=== PATIENT | female | born 1935 | race Caucasian/White ===

== ENCOUNTER 2016-08-19 05:24 | Emergency (ER) | payer OTHER ==
[~2016-08-19] VITALS: Ht 167.6 cm; Wt 85.3 kg
[~2016-08-19 05:24] MED LIST: ADVIL,NUPRIN,M200 MG PO; ATORVASTATIN CA10 MG PO; CALCIUM 500 +1 EAC4 PO; CIPRO500 MG PO; EYE DROP TEARS15 ML BOTH EYES; FISH OIL 1,0001 EAC7 PO; FLAGYL500 MG PO; MAGNESIUM100 MG PO; OMEGA 3-6-9 11200 MG PO; PRILOSEC10 MG PO; PROTONIX40 MG PO; RANITIDINE HCL300 MG PO; TYLENOL EXTRA500 MG PO; VITAMIN D1000 INTUN PO; ZANTAC300 MG PO; ZOFRAN4 MG PO
[2016-08-19 06:45] LABS: EOSINOPHIL (%) 0.2 % (0-5); HEMATOCRIT 38.2 % (36.0-46.0); IMMATURE GRANULOCYTE COUNT 0.1 K/uL; LYMPHOCYTE COUNT 0.8 K/uL (1.0-2.8); MCH 33.9 PG (29.0-34.0); MCHC 34.3 G/DL (30.0-36.0); MCV 98.7 FL (83-99); MEAN PLAT.VOLUME 9.6 uM^3 (9.5-12.4); MONOCYTE (%) 8.2 % (3-12); MONOCYTE COUNT 0.9 K/uL (0-0.8); NEUTROPHIL (%) 82.8 % (45-76); PLATELET COUNT 134 K/uL (156-360); RBC DIS.WIDTH-CV 13.4 % (11.8-14.6); RBC DIS.WIDTH-SD 47.4 % (39-53); RED BLOOD COUNT 3.87 M/uL (3.80-5.20); WHITE BLOOD COUNT 10.8 K/uL (4.1-10.2)
[2016-08-19 06:53] LABS: INTER. NORMALIZED RATIO 1.1; PROTHROMBIN TIME 11.3 (9.2-11.2)
[2016-08-19 06:54] LABS: ADD MIUA? YES; BILIRUBIN NEGATIVE; BLOOD NEGATIVE; COLOR YELLOW ((YELLOW)); GLUCOSE (STRIP) NEGATIVE; KETONES NEGATIVE; LEUKOCYTES NEGATIVE; NITRITE NEGATIVE; PROTEIN (STRIP) NEGATIVE; SPECIFIC GRAVITY 1.011 (1.000-1.030); UROBILINOGEN 0.2 MG/DL (0.2-1.0)
[2016-08-19 07:01] LABS: BACTERIA NONE SEEN /HPF; EPITHELIAL CELLS RARE /HPF; MUCUS TRACE /LPF; RED BLOOD CELLS 0-5 /HPF (0-5); UCUL ADDED? NO; WHITE BLOOD CELLS 0-5 /HPF (0-5)
[2016-08-19 07:10] LABS: ANION GAP 7 MEQ/L (2-14); CHLORIDE 103 MEQ/L (99-109); POTASSIUM 4.2 MEQ/L (3.7-5.4); SAMPLE HEMOLYSIS CHECK 0; SAMPLE ICTERIC CHECK 0; SAMPLE LIPEMIA CHECK 0; SODIUM 135 MEQ/L (136-147)
[2016-08-19 07:16] LABS: GFR ESTIMATE (CALCULATED) 56 mL/min/; GLUCOSE 148 mg/dL (70-99); UREA NITROGEN (BUN) 13 mg/dL (9-23)
[2016-08-19] MEDS ORDERED: PERCOCET 5/31 TABLET PO (09:30)
[2016-08-19] MEDS ORDERED: MEDROL DOSEPAK4 MG PO (09:30)
[2016-08-19 10:35] VITALS: BP 174/71
== END 2016-08-19 11:47 | disposition home or self-care (01) ==
LOC: EME 05:24
PROVIDERS: Emergency Medicine
DX: M51.26 Other intervertebral disc displacement, lumbar region (principal); K21.9 Gastro-esophageal reflux disease without esophagitis; E78.5 Hyperlipidemia, unspecified
CPT/HCPCS: 72148; 80048; 81003; 85025; 85610; 99281; 99284; J1885

== ENCOUNTER 2016-08-23 06:14 | Emergency (ER) | payer OTHER ==
[~2016-08-23] VITALS: Ht 167.6 cm; Wt 84.1 kg
[~2016-08-23 06:14] MED LIST changes: +MEDROL DOSEPAK4 MG PO; +PERCOCET 5/31 TABLET PO
[2016-08-23 07:43] LABS: ADD MIUA? YES; BILIRUBIN NEGATIVE; BLOOD SMALL; COLOR AMBER ((YELLOW)); GLUCOSE (STRIP) NEGATIVE; KETONES NEGATIVE; LEUKOCYTES SMALL; NITRITE NEGATIVE; PROTEIN (STRIP) 30; SPECIFIC GRAVITY 1.024 (1.000-1.030)
[2016-08-23 07:53] LABS: BACTERIA 1+ /HPF; EPITHELIAL CELLS NONE SEEN /HPF; MUCUS TRACE /LPF; UCUL ADDED? NO; WHITE BLOOD CELLS 40-50 /HPF (0-5)
[2016-08-23] MEDS ORDERED: ELIQUIS5 MG PO (10:58)
[2016-08-23] MEDS ORDERED: CIPRO500 MG PO (13:47)
[2016-08-23] MEDS ORDERED: PERCOCET 5/31 TABLET PO (13:47)
[2016-08-23 14:43] VITALS: BP 103/55
== END 2016-08-23 14:47 | disposition home or self-care (01) ==
LOC: EME 06:14
PROVIDERS: Emergency Medicine
DX: M51.16 Intervertebral disc disorders with radiculopathy, lumbar region (principal); I48.91 Unspecified atrial fibrillation; Z79.01 Long term (current) use of anticoagulants; E78.5 Hyperlipidemia, unspecified
CPT/HCPCS: 81003; 99281; 99285; J1100; J1885; J2405; J3010

== ENCOUNTER 2016-08-26 19:54 | Inpatient (IN) | payer OTHER ==
[~2016-08-26] VITALS: Ht 167.6 cm; Wt 77.2 kg
[~2016-08-26 19:54] MED LIST changes: +ELIQUIS5 MG PO
[2016-08-26 22:59] LABS: ADD MIUA? YES; BILIRUBIN NEGATIVE; BLOOD NEGATIVE; COLOR YELLOW ((YELLOW)); GLUCOSE (STRIP) NEGATIVE; KETONES 5; LEUKOCYTES NEGATIVE; NITRITE NEGATIVE; PROTEIN (STRIP) NEGATIVE; SPECIFIC GRAVITY 1.014 (1.000-1.030)
[2016-08-26 23:15] LABS: HEMATOCRIT 34.9 % (36.0-46.0); MCH 34.2 PG (29.0-34.0); MCHC 35.2 G/DL (30.0-36.0); MCV 96.9 FL (83-99); MEAN PLAT.VOLUME 9.4 uM^3 (9.5-12.4); PLATELET COUNT 142 K/uL (156-360); RBC DIS.WIDTH-CV 13.5 % (11.8-14.6); RBC DIS.WIDTH-SD 48.2 % (39-53); WHITE BLOOD COUNT 17.6 K/uL (4.1-10.2)
[2016-08-26] MEDS ORDERED: SYNTHROID25 MCG PO (23:26)
[2016-08-26] MEDS ORDERED: AMIODARONE HCL200 MG PO (23:26)
[2016-08-26] MEDS ORDERED: FUROSEMIDE20 MG PO (23:26)
[2016-08-27 00:19] LABS: CHLORIDE 100 mEq/L (99-109); POTASSIUM 4.4 mEq/L (3.7-5.4); SODIUM 129 mEq/L (136-147)
[2016-08-27 00:21] LABS: GLUCOSE 143 mg/dL (70-99)
[2016-08-27 00:22] LABS: ANION GAP 5 MEQ/L (2-14)
[2016-08-27 00:25] LABS: GFR ESTIMATE (CALCULATED) > 59 mL/min/
[2016-08-27 00:44] LABS: BACTERIA RARE /HPF; EPITHELIAL CELLS RARE /HPF; MUCUS NONE SEEN /LPF; RED BLOOD CELLS 0-5 /HPF (0-5); UCUL ADDED? NO; WHITE BLOOD CELLS 0-5 /HPF (0-5)
[2016-08-27 00:53] LABS: UREA NITROGEN (BUN) 23 mg/dL (9-23)
[2016-08-27 08:10] VITALS: BP 153/62
[2016-08-27 11:34] VITALS: BP 118/56
[2016-08-27 15:48] VITALS: BP 178/74
[2016-08-27 16:11] VITALS: BP 124/60
[2016-08-27 20:42] VITALS: BP 141/62
[2016-08-28] VITALS: BP 124/64
[2016-08-28 04:33] VITALS: BP 150/70
[2016-08-28 04:50] VITALS: BP 140/70
[2016-08-28 06:51] LABS: HEMATOCRIT 32.5 % (36.0-46.0); MCHC 34.8 G/DL (30.0-36.0); MCV 97.9 FL (83-99); MEAN PLAT.VOLUME 9.9 uM^3 (9.5-12.4); PLATELET COUNT 110 K/uL (156-360); RBC DIS.WIDTH-CV 13.7 % (11.8-14.6); RBC DIS.WIDTH-SD 49.2 % (39-53); RED BLOOD COUNT 3.32 M/uL (3.80-5.20); WHITE BLOOD COUNT 17.8 K/uL (4.1-10.2)
[2016-08-28 07:23] LABS: ANION GAP 7 MEQ/L (2-14); CHLORIDE 96 MEQ/L (99-109); GFR ESTIMATE (CALCULATED) > 59 mL/min/; POTASSIUM 3.8 MEQ/L (3.7-5.4); SAMPLE HEMOLYSIS CHECK 0; SAMPLE ICTERIC CHECK 0; SAMPLE LIPEMIA CHECK 0; SODIUM 128 MEQ/L (136-147); UREA NITROGEN (BUN) 22 mg/dL (9-23)
[2016-08-28 07:25] LABS: GLUCOSE 88 mg/dL (70-99)
[2016-08-28 07:38] VITALS: BP 126/61
[2016-08-28 11:14] VITALS: BP 104/52
[2016-08-28 16:02] VITALS: BP 139/64
[2016-08-29 00:08] VITALS: BP 134/64
[2016-08-29 06:53] LABS: MCH 35.2 PG (29.0-34.0); MCHC 35.2 G/DL (30.0-36.0); PLATELET COUNT 109 K/uL (156-360); RBC DIS.WIDTH-CV 13.8 % (11.8-14.6); RBC DIS.WIDTH-SD 49.7 % (39-53); WHITE BLOOD COUNT 12.9 K/uL (4.1-10.2)
[2016-08-29 07:30] LABS: ABS NEUTROPHIL COUNT 9.4; ANISOCYTOSIS 1+; EOSINOPHIL ABS CT 0.1; EOSINOPHILS 0.9 % (0-5.0); INSTRUMENT ABS NEUTROPHIL CT 8.2 K/uL; LYMPHOCYTES 18.3 % (15.0-45.0); METAMYELOCYTES 1.7 %; MYELOCYTES 4.4 %; PLAT.SUFFICIENCY DECREASED; SMUDGE CELLS 1.7
[2016-08-29 07:34] LABS: ALKALINE PHOSPHATASE 51 IU/L (3-129); ANION GAP 3 MEQ/L (2-14); CHLORIDE 102 MEQ/L (99-109); DIRECT BILIRUBIN 0.3 mg/dL (0.0-0.3); GFR ESTIMATE (CALCULATED) > 59 mL/min/; SAMPLE HEMOLYSIS CHECK 0; SAMPLE ICTERIC CHECK 0; SAMPLE LIPEMIA CHECK 0; SODIUM 133 MEQ/L (136-147); TOTAL BILIRUBIN 0.8 MG/DL (0.0-1.0); UREA NITROGEN (BUN) 17 mg/dL (9-23)
[2016-08-29 07:39] LABS: GLUCOSE 114 mg/dL (70-99)
[2016-08-29 16:10] VITALS: BP 132/63
[2016-08-29 23:42] VITALS: BP 131/60
[2016-08-30 07:02] LABS: HEMATOCRIT 33.9 % (36.0-46.0); MCH 33.2 PG (29.0-34.0); MCHC 33.9 G/DL (30.0-36.0); MEAN PLAT.VOLUME 9.4 uM^3 (9.5-12.4); PLATELET COUNT 123 K/uL (156-360); RBC DIS.WIDTH-CV 13.4 % (11.8-14.6); RBC DIS.WIDTH-SD 47.1 % (39-53); RED BLOOD COUNT 3.46 M/uL (3.80-5.20); WHITE BLOOD COUNT 14.1 K/uL (4.1-10.2)
[2016-08-30 07:28] LABS: ANION GAP 6 MEQ/L (2-14); CHLORIDE 101 MEQ/L (99-109); GFR ESTIMATE (CALCULATED) > 59 mL/min/; GLUCOSE 113 mg/dL (70-99); POTASSIUM 3.7 MEQ/L (3.7-5.4); SAMPLE HEMOLYSIS CHECK 0; SAMPLE ICTERIC CHECK 0; SAMPLE LIPEMIA CHECK 0; SODIUM 134 MEQ/L (136-147); UREA NITROGEN (BUN) 13 mg/dL (9-23)
[2016-08-30 07:59] VITALS: BP 124/58
[2016-08-30 08:35] LABS: ABS NEUTROPHIL COUNT 11.3; ANISOCYTOSIS 1+; BAND NEUTROPHILS 1.8 % (0-8.0); BURR CELLS 1+; EOSINOPHIL ABS CT 0.1; EOSINOPHILS 0.9 % (0-5.0); INSTRUMENT ABS NEUTROPHIL CT 9.3 K/uL; LYMPHOCYTES 12.5 % (15.0-45.0); MACROCYTES 1+; METAMYELOCYTES 0.9 %; OVALOCYTES 1+; PLAT.SUFFICIENCY DECREASED; SEG.NEUTROPHILS 78.6 % (46.0-76.0)
[2016-08-30 16:02] VITALS: BP 117/58
[2016-08-30 23:41] VITALS: BP 151/69
[2016-08-31 06:40] LABS: HEMATOCRIT 33.2 % (36.0-46.0); MCH 33.1 PG (29.0-34.0); MCV 97.4 FL (83-99); MEAN PLAT.VOLUME 9.5 uM^3 (9.5-12.4); PLATELET COUNT 137 K/uL (156-360); RBC DIS.WIDTH-CV 13.5 % (11.8-14.6); RBC DIS.WIDTH-SD 47.6 % (39-53); RED BLOOD COUNT 3.41 M/uL (3.80-5.20); WHITE BLOOD COUNT 14.8 K/uL (4.1-10.2)
[2016-08-31 07:14] LABS: ABS NEUTROPHIL COUNT 12.6; ANISOCYTOSIS 1+; BAND NEUTROPHILS 1.8 % (0-8.0); BASOPHILS 0.9 %; EOSINOPHIL ABS CT 0; INSTRUMENT ABS NEUTROPHIL CT 10.8 K/uL; LYMPHOCYTES 8.8 % (15.0-45.0); MACROCYTES 1+; METAMYELOCYTES 0.9 %; MYELOCYTES 1.8 %; PLAT.SUFFICIENCY DECREASED; SEG.NEUTROPHILS 83.2 % (46.0-76.0)
[2016-08-31 07:21] LABS: ANION GAP 6 MEQ/L (2-14); CHLORIDE 100 MEQ/L (99-109); GFR ESTIMATE (CALCULATED) > 59 mL/min/; GLUCOSE 106 mg/dL (70-99); POTASSIUM 3.7 MEQ/L (3.7-5.4); SAMPLE HEMOLYSIS CHECK 0; SAMPLE ICTERIC CHECK 0; SAMPLE LIPEMIA CHECK 0; SODIUM 133 MEQ/L (136-147); UREA NITROGEN (BUN) 15 mg/dL (9-23)
[2016-08-31 08:32] VITALS: BP 141/65
[2016-08-31 15:58] VITALS: BP 120/60
[2016-08-31 19:26] LABS: ADD MIUA? YES; BILIRUBIN NEGATIVE; BLOOD SMALL; COLOR YELLOW ((YELLOW)); GLUCOSE (STRIP) NEGATIVE; KETONES NEGATIVE; LEUKOCYTES NEGATIVE; NITRITE NEGATIVE; PROTEIN (STRIP) NEGATIVE; SPECIFIC GRAVITY 1.008 (1.000-1.030)
[2016-08-31 19:35] LABS: BACTERIA NONE SEEN /HPF; EPITHELIAL CELLS RARE /HPF; MUCUS TRACE /LPF; UCUL ADDED? NO; WHITE BLOOD CELLS 0-5 /HPF (0-5)
[2016-08-31 23:56] VITALS: BP 153/69
[2016-09-01 07:47] VITALS: BP 173/90
[2016-09-01 08:25] LABS: HEMATOCRIT 36.4 % (36.0-46.0); MCHC 34.6 G/DL (30.0-36.0); MCV 98.1 FL (83-99); MEAN PLAT.VOLUME 9.3 uM^3 (9.5-12.4); PLATELET COUNT 168 K/uL (156-360); RBC DIS.WIDTH-CV 13.4 % (11.8-14.6); RBC DIS.WIDTH-SD 47.5 % (39-53); RED BLOOD COUNT 3.71 M/uL (3.80-5.20); WHITE BLOOD COUNT 16.5 K/uL (4.1-10.2)
[2016-09-01 08:47] LABS: ANION GAP 7 MEQ/L (2-14); CHLORIDE 100 MEQ/L (99-109); POTASSIUM 3.8 MEQ/L (3.7-5.4); SAMPLE HEMOLYSIS CHECK 0; SAMPLE ICTERIC CHECK 0; SAMPLE LIPEMIA CHECK 0; SODIUM 133 MEQ/L (136-147)
[2016-09-01 08:52] LABS: GFR ESTIMATE (CALCULATED) > 59 mL/min/; GLUCOSE 107 mg/dL (70-99); UREA NITROGEN (BUN) 14 mg/dL (9-23)
[2016-09-01 23:39] VITALS: BP 168/76
[2016-09-02 05:23] VITALS: BP 148/72
[2016-09-02 07:39] VITALS: BP 141/63
[2016-09-02 09:44] LABS: HEMATOCRIT 38.3 % (36.0-46.0); MCHC 34.2 G/DL (30.0-36.0); MCV 99.5 FL (83-99); MEAN PLAT.VOLUME 9.3 uM^3 (9.5-12.4); PLATELET COUNT 198 K/uL (156-360); RBC DIS.WIDTH-CV 13.6 % (11.8-14.6); RBC DIS.WIDTH-SD 49.1 % (39-53); RED BLOOD COUNT 3.85 M/uL (3.80-5.20); WHITE BLOOD COUNT 17.9 K/uL (4.1-10.2)
[2016-09-02 10:49] LABS: ANION GAP 9 MEQ/L (2-14); CHLORIDE 99 MEQ/L (99-109); GFR ESTIMATE (CALCULATED) > 59 mL/min/; GLUCOSE 100 mg/dL (70-99); POTASSIUM 3.8 MEQ/L (3.7-5.4); SAMPLE HEMOLYSIS CHECK 0; SAMPLE ICTERIC CHECK 0; SAMPLE LIPEMIA CHECK 0; SODIUM 135 MEQ/L (136-147); UREA NITROGEN (BUN) 11 mg/dL (9-23)
[2016-09-02 14:44] LABS: ADD MIUA? NO; BILIRUBIN NEGATIVE; BLOOD NEGATIVE; COLOR YELLOW ((YELLOW)); GLUCOSE (STRIP) NEGATIVE; KETONES NEGATIVE; LEUKOCYTES NEGATIVE; NITRITE NEGATIVE; PROTEIN (STRIP) NEGATIVE; SPECIFIC GRAVITY 1.009 (1.000-1.030); UCUL ADDED? NO
[2016-09-02] MEDS ORDERED: CYCLOBENZAPRINE5 MG PO (15:48)
[2016-09-02] MEDS ORDERED: GABAPENTIN300 MG PO (15:49)
[2016-09-02] MEDS ORDERED: DOCUSATE SODIU100 MG PO (15:50)
[2016-09-02] MEDS ORDERED: MORPHINE SULFAT15 MG PO (15:51)
[2016-09-02 16:39] VITALS: BP 148/66
== END 2016-09-02 18:05 | DRG 552 ==
LOC: EME 19:54 → EDOF 08-27 01:32 → 3EAST 08-27 15:30
PROVIDERS: Emergency Medicine; Hospitalist; Internal Medicine; Physician Assistant
DX: M47.26 Other spondylosis with radiculopathy, lumbar region (principal); E87.1 Hypo-osmolality and hyponatremia; M48.06 Spinal stenosis, lumbar region; M51.16 Intervertebral disc disorders with radiculopathy, lumbar region; D72.829 Elevated white blood cell count, unspecified; E86.1 Hypovolemia; E78.5 Hyperlipidemia, unspecified; K21.9 Gastro-esophageal reflux disease without esophagitis; I48.0 Paroxysmal atrial fibrillation; E03.9 Hypothyroidism, unspecified; M19.90 Unspecified osteoarthritis, unspecified site; Z96.641 Presence of right artificial hip joint; E66.9 Obesity, unspecified; Z68.27 Body mass index [BMI] 27.0-27.9, adult; Z79.01 Long term (current) use of anticoagulants; Z82.49 Family history of ischemic heart disease and other diseases of the circulatory system; Z88.0 Allergy status to penicillin; Z88.2 Allergy status to sulfonamides; Z88.1 Allergy status to other antibiotic agents; Z88.5 Allergy status to narcotic agent
CPT/HCPCS: 71010; 80048; 80076; 81003; 83735; 85025; 85027; 99281; 99285; G0378; J1885; J2270; J7030

== ENCOUNTER 2016-11-23 16:43 | Inpatient (IN) | payer OTHER ==
[~2016-11-23] VITALS: Ht 165.1 cm; Wt 73.7 kg
[~2016-11-23 16:43] MED LIST changes: +AMIODARONE HCL200 MG PO; +CYCLOBENZAPRINE5 MG PO; +DOCUSATE SODIU100 MG PO; +FUROSEMIDE20 MG PO; +GABAPENTIN300 MG PO; +MORPHINE SULFAT15 MG PO; +SYNTHROID25 MCG PO
[2016-11-23 18:01] LABS: HEMATOCRIT 34.5 % (36.0-46.0); MCH 33.1 PG (29.0-34.0); MCV 100.3 FL (83-99); MEAN PLAT.VOLUME 8.8 uM^3 (9.5-12.4); PLATELET COUNT 162 K/uL (156-360); RBC DIS.WIDTH-CV 16.4 % (11.8-14.6); RBC DIS.WIDTH-SD 60.2 % (39-53); RED BLOOD COUNT 3.44 M/uL (3.80-5.20); WHITE BLOOD COUNT 11.7 K/uL (4.1-10.2)
[2016-11-23 18:08] LABS: INTER. NORMALIZED RATIO 1.4; PROTHROMBIN TIME 15.6 SEC (10.2-12.9)
[2016-11-23 18:09] LABS: CHLORIDE 105 mEq/L (99-109); SODIUM 137 mEq/L (136-147)
[2016-11-23 18:10] LABS: PTT 29.1 SEC (25-37)
[2016-11-23 18:11] LABS: GLUCOSE 121 mg/dL (70-99)
[2016-11-23 18:12] LABS: ANION GAP 5 MEQ/L (2-14)
[2016-11-23 18:15] LABS: GFR ESTIMATE (CALCULATED) > 59 mL/min/
[2016-11-23 18:16] LABS: UREA NITROGEN (BUN) 15 mg/dL (9-23)
[2016-11-23 21:58] VITALS: BP 153/67
[2016-11-23 22:15] VITALS: BP 153/67
[2016-11-23 23:37] VITALS: BP 115/58
[2016-11-24] MEDS ORDERED: ZOLOFT50 MG PO (02:55)
[2016-11-24 03:35] VITALS: BP 123/61
[2016-11-24 06:09] LABS: HEMATOCRIT 32.8 % (36.0-46.0); MCH 32.7 PG (29.0-34.0); MCHC 32.3 G/DL (30.0-36.0); MCV 101.2 FL (83-99); MEAN PLAT.VOLUME 9.2 uM^3 (9.5-12.4); PLATELET COUNT 173 K/uL (156-360); RBC DIS.WIDTH-CV 16.4 % (11.8-14.6); RBC DIS.WIDTH-SD 61.3 % (39-53); RED BLOOD COUNT 3.24 M/uL (3.80-5.20); WHITE BLOOD COUNT 9.9 K/uL (4.1-10.2)
[2016-11-24 06:33] LABS: ANION GAP 6 MEQ/L (2-14); CHLORIDE 106 MEQ/L (99-109); GFR ESTIMATE (CALCULATED) > 59 mL/min/; GLUCOSE 123 mg/dL (70-99); POTASSIUM 3.6 MEQ/L (3.7-5.4); SAMPLE HEMOLYSIS CHECK 0; SAMPLE ICTERIC CHECK 0; SAMPLE LIPEMIA CHECK 0; SODIUM 139 MEQ/L (136-147); UREA NITROGEN (BUN) 12 mg/dL (9-23)
[2016-11-24 07:15] LABS: ADD MIUA? YES; BILIRUBIN NEGATIVE; BLOOD LARGE; COLOR YELLOW ((YELLOW)); GLUCOSE (STRIP) NEGATIVE; KETONES NEGATIVE; LEUKOCYTES NEGATIVE; NITRITE NEGATIVE; PROTEIN (STRIP) NEGATIVE; SPECIFIC GRAVITY 1.024 (1.000-1.030)
[2016-11-24 07:36] LABS: BACTERIA NONE SEEN /HPF; EPITHELIAL CELLS RARE /HPF; HYALINE CASTS 0-5 /LPF; MUCUS TRACE /LPF; RED BLOOD CELLS TNTC /HPF (0-5); UCUL ADDED? YES; WHITE BLOOD CELLS 0-5 /HPF (0-5)
[2016-11-24 07:51] VITALS: BP 152/69
[2016-11-24 09:26] LABS: C-REACTIVE PROTEIN 43.5 MG/L (0-10)
[2016-11-24 09:51] LABS: ERTH.SED.RATE 26 MM/HR (0-30)
[2016-11-24 15:51] VITALS: BP 154/70
[2016-11-24 19:21] VITALS: BP 151/70
[2016-11-24 23:59] VITALS: BP 130/74
[2016-11-25 08:48] VITALS: BP 179/78
[2016-11-25 12:00] VITALS: BP 144/67
== END 2016-11-25 12:46 | disposition short-term general hospital (02) | DRG 539 ==
LOC: EME 16:43 → EDOF 19:49 → 3EAST 19:49 → ENRESERV 19:50 → 3EAST 21:47
PROVIDERS: Emergency Medicine; Hospitalist
DX: M46.26 Osteomyelitis of vertebra, lumbar region (principal); G06.1 Intraspinal abscess and granuloma; M46.46 Discitis, unspecified, lumbar region; R31.9 Hematuria, unspecified; K21.9 Gastro-esophageal reflux disease without esophagitis; E78.5 Hyperlipidemia, unspecified; Z96.641 Presence of right artificial hip joint; N93.9 Abnormal uterine and vaginal bleeding, unspecified; G89.29 Other chronic pain; M54.16 Radiculopathy, lumbar region; K57.30 Diverticulosis of large intestine without perforation or abscess without bleeding; M48.061 Spinal stenosis, lumbar region without neurogenic claudication; M25.552 Pain in left hip; R53.1 Weakness; R32 Unspecified urinary incontinence; G06.2 Extradural and subdural abscess, unspecified; I48.91 Unspecified atrial fibrillation; Z91.09 Other allergy status, other than to drugs and biological substances; Z88.1 Allergy status to other antibiotic agents; Z88.2 Allergy status to sulfonamides; Z88.6 Allergy status to analgesic agent
CPT/HCPCS: 72158; 74177; 76856; 80048; 81003; 85027; 85610; 85651; 85730; 86140; 87040; 87077; 87086; 87186; 87801; 93306; 99281; 99285; J0692; J0696; J1644; J1885; J2405; J3370; J7030; J7050